=== PATIENT | female | born 1980 | race Caucasian/White ===

== ENCOUNTER 2022-10-27 18:16 | Emergency (ER) | payer MEDICAID ==
[~2022-10-27] VITALS: Ht 170.2 cm; Wt 113.6 kg
[~2022-10-27 18:16] MED LIST: IBUP-1574 PO
[2022-10-27 18:39] VITALS: BP 162/112; PULSE 115; RESP 18; TEMP 99.5; O2SAT 97
[2022-10-27 19:13] LABS: URINE HCG NEGATIVE (NEG)
[2022-10-27 19:17] LABS: CLARITY,URINE SLIGHTLY CLOUDY (Clear); GLUCOSE, URINE NEGATIVE (Neg); KETONES,URINE 40 mg/dl (Neg); LEUKOCYTE ESTERASE ,URINE NEGATIVE (Neg); NITRITES, URINE NEGATIVE (Neg); OCCULT BLOOD,URINE MODERATE (Neg); PROTEIN,URINE 30 mg/dl (Neg); UROBILINOGEN,URINE 0.2 E.U/dL (0.2-1.0)
[2022-10-27 19:18] LABS: COLOR,URINE DARK YELLOW (Yellow); UA COLLECTION TYPE CLN CATCH MIDSTREAM
[2022-10-27 19:18] LABS: BASOPHILS % (AUTO) 0.4 % (0-1); EOSINOPHILS % (AUTO) 0.3 % (0-6); HEMATOCRIT 46.5 % (35.0-45.0); HEMOGLOBIN 15.8 g/dl (12.0-16.0); LYMPHOCYTES # (AUTO) 1.5 X10'3 (1.1-4.8); LYMPHOCYTES % (AUTO) 13.5 % (21-51); MEAN CORPUSCULAR HEMOGLOBIN 30.2 PG (27.0-31.0); MEAN CORPUSCULAR HGB CONC 33.9 g/dL (33.0-36.5); MEAN CORPUSCULAR VOLUME 88.9 FL (78-98); MEAN PLATELET VOLUME 8.6 FL (7.4-10.4); MONOCYTES # (AUTO) 0.9 X10'3 (0-0.9); MONOCYTES % (AUTO) 7.9 % (2-12); NEUTROPHILS # (AUTO) 8.9 X10'3 (1.8-7.7); NEUTROPHILS % (AUTO) 77.9 % (42-75); PLATELET COUNT 300 X10'3 (140-440); RED BLOOD COUNT 5.23 X10'6 (4.20-5.60); RED CELL DISTRIBUTION WIDTH 13.4 % (11.5-14.5); WHITE BLOOD COUNT 11.4 X10'3 (4.5-11.0)
[2022-10-27 19:25] LABS: BACTERIA,URINE 1+ /HPF (Neg); FINE GRANULAR CAST 0-3 /LPF (NEGATIVE); MUCUS STRANDS FEW /LPF (Neg); SQUAMOUS EPITHELIAL CELL,UR FEW /LPF (FEW); TRANSITIONAL EPI CELLS,URINE FEW /HPF; WBC,URINE 0-4 /HPF (0-4)
[2022-10-27 19:26] LABS: ALANINE AMINOTRANSFERASE 45 U/L (12-78); ALBUMIN 4.1 G/DL (3.4-5.0); ALBUMIN/GLOBULIN RATIO 0.8 (1.1-1.5); ALKALINE PHOSPHATASE 134 IU/L (46-116); ANION GAP 13 (8-16); ASPARTATE AMINO TRANSFERASE 30 U/L (10-37); BILIRUBIN,TOTAL 0.4 MG/DL (0.1-1.0); BLOOD UREA NITROGEN 10 MG/DL (7-18); BUN/CREATININE RATIO 10.2 (10.0-20.0); CALCIUM 9.7 MG/DL (8.5-10.1); CHLORIDE 97 MMOL/L (99-107); CREATININE 0.98 MG/DL (0.40-0.90); GLUCOSE 106 MG/DL (70-104); LIPASE 92 U/L (73-393); POTASSIUM 3.9 MMOL/L (3.5-5.1); SODIUM 134 MMOL/L (135-145); TOTAL CARBON DIOXIDE 23.7 MMOL/L (24-32); TOTAL PROTEIN 9.3 G/DL (6.4-8.2); eGFR 62 ML/MIN
== END 2022-10-27 23:24 | disposition left against medical advice (07) ==
LOC: ER 18:17
DX: R10.9 Unspecified abdominal pain (principal); Z53.21 Procedure and treatment not carried out due to patient leaving prior to being seen by health care provider
CPT/HCPCS: 36415; 80053; 81001; 81025; 83690; 85025; 99281

== ENCOUNTER 2024-12-01 03:12 | Emergency (ER) | payer MEDICAID ==
[~2024-12-01] VITALS: Ht 167.6 cm; Wt 83.4 kg
[~2024-12-01 03:12] MED LIST changes: +MAGN296S68 PO; +POLY119P2 PO; +SENN-202 PO
[2024-12-01 03:17] VITALS: TEMP 98.3
--- NOTE | 2024-12-01 03:35 | Physician Documentation ---
History of Present Illness ~ Chief Complaint: Finger pain Stated Complaint: FINGER PAIN Time Seen by MD: 03:30 Primary Medical Doctor: [facility] HPI This is a 44-year-old female who presents for evaluation of traumatic injuries sustained when she slammed the finger in the car door. A 3rd digits of her left hand. Reports an immediate onset pain. Sharp, nonradiating not migratory. No particular palliating factors. Did not attempt to treat it. The this is duration. Bleeding spontaneously controlled. Denies any other injury. Tetanus within 5 years: Yes Medication Reconciliation Allergies: Coded Allergies: No Known Allergies (Unverified , 02/15/24) Scheduled Ibuprofen (Ibuprofen), 800 MG PO Q8H Magnesium Citrate (MAGNESIUM CITRATE oral solution), 296 ML PO ONCE Polyethylene Glycol 3350 (Miralax), 17 GM PO DAILY Sennosides/Docusate Sodium (Colace 2-in-1 Tablet), 1 TAB PO Q12H Past Medical History Past Medical History: No Pertinent History Past Surgical History: no surgical history Alcohol Use: None Drug Use: none Lives In: Home Occupation: employed Review of Systems ROS 10 point review of systems was performed and unless noted above in HPI is negative for acute process/complaint. Physical Exam Vital Signs: Temperature: 98.3, Source: Oral, Heart Rate: 107, Respiratory Ra te: 22, BP: 142/100, Pulse Oximetry: 98, Weight: 83.400 Physical Exam Physical examination: GENERAL: Awake, alert, oriented, GCS 15, no apparent distress, non-toxic appearing, answers questions, follows commands appropriately. HEENT: Atraumatic, normocephalic, pupils equal, extraocular muscles intact Active gross movements, sclerae anicteric, mucus membranes moist, no stridor. NECK: Midline, no JVD CARDIOVASCULAR: Good skin perfusion without evidence of pallor, mottling. PULMONARY: Nonlabored, symmetric chest rise, no audible wheezing, no accessory muscle use, no respiratory distress, speaking in full sentences. GASTROINTESTINAL: Not distended. NEUROLOGIC: Lucid with normal mental status. Normal facial symmetry. Moves all extremities symmetrically and with purpose. No truncal ataxia. Speech is fluid without evidence of dysarthria or aphasia, no focal deficits appreciated. EXTREMITIES: Acute deformities Skin: warm, dry PSYCHIATRIC: Normal affect, normal insight, normal concentration. Focused exam: [3rd digit of the left hand examined. There is a complete nail avulsion, known nail bed laceration, there is a proximally 2 cm laceration to the distal aspect of the 3rd digit. No active bleeding.] Procedures Laceration Repair : Anesthesia: Lidocaine (Digital block, 4 cc of lidocaine 1% without epinephrine) Prep: irrigated by nurse Foreign Body: not identified Repaired: skin Wound Repaired With: sutures Suture Size/Type: 4-0, ethilon Number of Superficial Sutures: 7 Dressing Applied: non-adherent Tolerated Procedure Well?: yes, no complications Progress Results/Orders Results/Orders Orders - JUDITH MUNIZ DO Finger(S) (12/01/24 03:23) Completed Orders - JUDITH MUNIZ DO Lidocaine 1% 30ml Vial (Xylocaine 1% Via (12/01/24 03:30) Tetanus/Pertuss/Diph Acell/Pf (Boostrix (12/01/24 03:35) Hydrocodone/Apap 5/325mg Tab (Otley 5/32 (12/01/24 03:40) Medications Received in ER Medications (Trade) Dose Ordered Sig/Maykel Route PRN Reason Start Time Stop Time Status Last Admin Dose Admin (Boostrix vaccine syringe) 0.5 ml ONCE ONCE IMVAC 12/01/24 03:35 12/01/24 03:36 DC 12/01/24 03:41 0.5 ML Vital Signs 12/01/24 12/01/24 03:17 03:59 Temp 98.3 Pulse 107 Resp 22 16 B/P (MAP) 142/100 Pulse Ox 98 Medical Decision Making Findings Facility Status: ED Holds, PENDING SALE TO [facility] process The plan was discussed with the patient, who demonstrates clear understanding of the plan and is in agreement with the plan unless otherwise noted in the chart. All questions have been answered, all concerns were addressed unless otherwise documented. I was available throughout their ED stay for frequent reassessment and questions. Differential Diagnoses (considered and possible or likely): [Acute traumatic pain, finger contusion versus fracture including tuft fracture, nail avulsion, finger laceration] ??Differential Diagnoses (considered and unlikely, not requiring evaluation currently): [See above] MDM Data Please see HPI for the following: Independent Historians and external Records Review. Historian: [Patient] Independent Historians: ?[None] Medication Management: [Reviewed medication list] Social History and determinants: [Reviewed] Please see the body of the note for the following: Any independent interpretations of ECG, imaging studies. All vitals signs/haemodynamics, ordered tests were independently reviewed and interpreted by myself. Nursing triage complaint and vitals reviewed, additional nursing notes were reviewed as available and I agree unless otherwise noted or documented in contradiction in the chart Vital Signs: Independently reviewed Labs: Independently interpreted Imaging: Independently interpreted Old Medical Records: Independently reviewed, see HPI for relevant summary and information Pulse Oximetry: [98%] interpreted as [normal on room air] by me Additionally notably showing: [Slightly tachycardic, most likely related to pain.] Tachycardia improved. X-ray on my independent interpretation shows a tuft fracture. Tests considered but not ordered include: [Hematologic workup has been considered but does not appear to be necessary given mechanical nature of the injury.] Social Determinants of Health Impact: Patient was evaluated in [facility], [facility] [place] due to below par ratio of patient to medical providers. [] Comorbid Conditions Impacting Present Evaluation and Care/Treatment: [None reported] Management Discussions with other Healthcare Providers: [None] Treatment and Disposition Medication Management (Given or considered): [Tetanus update]. See EMR for details Consideration for Hospitalization/Escalation/Deescalation of Care: Admission for observation has been considered, [however the patient is able to tolerate p.o., their symptoms are controlled, they are able to rely on oral medications, and their chief complaint/diagnosis can be managed on outpatient basis.] ?ED Course:?[Laceration was repaired with digital block. Patient tolerated procedure well.] ?Shared decision making:?[Patient is hemodynamically stable for discharge home with follow with their primary care provider. [ ] Specific and cautious return precautions provided and discussed with full understanding. Any incidental findings were also discussed and follow up recommendations given. [] All questions answered. Patient/family were able to verbalize back return precautions. Patient/family agree to plan. Copies of imaging and laboratory studies were provided.] Code status:?FULL Please see the full Electronic Medical Record for full details of nursing documentation, medications list, other records of complete past medical history and conditions, vital signs, laboratory studies, and any radiologic study interpretations by radiologists. Portions of this note were completed using [employer] dictation software and as a result there may exist minor errors in spelling. I have reviewed elements of past family and social history and agree as included in note. Departure Disposition: 01 HOME / SELF CARE / HOMELESS Impression: Primary Impression: Crushing injury of finger of left hand Additional Impressions: Acute traumatic pain Finger laceration Tetanus toxoid inoculation Open fracture of tuft of distal phalanx of finger Fingernail avulsion, complete Condition: Improved Discharge Instructions: Finger Fracture, Adult, Laceration Care, Adult Referrals: NO PRIMARY CARE PROVIDER (PCP) Prescriptions Cephalexin*Monohydrate* (Keflex*) 500 Mg Capsule 1 CAP PO Q6H for 10 Days, #40 CAP Prov: JUDITH MUNIZ DO 12/01/24 Education Educated: Patient Educated regarding: diagnosis, treatment, prognosis, need for follow up Signature Scribe Signature: No scribe Attestation: Date: Dec 01, 2024 Time: 03:35 This note accurately reflects clinical decisions, work performed by myself, DO FLAVIO Daniel NICHOLAS M DO Dec 01, 2024 03:35
[2024-12-01] MEDS: TETanus/Pertussis (Acell)/Diphther VAC/PF (Tdap-Adult) 0.5ml syringe IMVAC ONE (03:41)
[2024-12-01] MEDS: LIDOcaine 1% 30ml preserv. free vial SQ STA (03:59)
[2024-12-01] MEDS: HYDROcodone/acetaminophen 5mg/325mg tablet PO ONE (03:59)
[2024-12-01] MEDS ORDERED: CEPH-585 PO (04:13)
[2024-12-01 04:19] VITALS: BP 138/98; PULSE 94; RESP 18; O2SAT 98
--- NOTE | 2024-12-01 04:27 | RADIOLOGY REPORT ---
INDICATION: Finger Pain TECHNICAL DATA: Frontal view of the left hand and lateral and oblique views of the left 3rd digit wer e obtained. COMPARISON: None IMPRESSION: There is a moderately displaced transverse fracture of the 3rd distal phalangeal tuft of the distal p halanx. No additional acute fracture. No radiopaque foreign body.
== END 2024-12-01 04:20 | disposition home or self-care (01) ==
LOC: ER 03:12
DX: S62.633A Displaced fracture of distal phalanx of left middle finger, initial encounter for closed fracture (principal); S61.213A Laceration without foreign body of left middle finger without damage to nail, initial encounter; G89.11 Acute pain due to trauma; W23.2XXA Caught, crushed, jammed or pinched between a moving and stationary object, initial encounter; Y93.89 Activity, other specified; Y92.89 Other specified places as the place of occurrence of the external cause; Y99.8 Other external cause status
CPT/HCPCS: 12001; 73140; 90471; 90715; 99283; A6222; J7030; 99284; A6258; A6449